=== PATIENT | female | born 2000 | race Caucasian/White ===

== ENCOUNTER 2021-10-06 22:11 | Emergency (ER) | payer OTHER ==
[~2021-10-06] VITALS: Ht 152.4 cm; Wt 72.6 kg
== END 2021-10-06 23:01 | disposition home or self-care (01) ==
LOC: ER 22:11
DX: S60.032A Contusion of left middle finger without damage to nail, initial encounter (principal); Y93.B9 Activity, other involving muscle strengthening exercises; Y92.89 Other specified places as the place of occurrence of the external cause

== ENCOUNTER → 2022-05-05 | Emergency (ER) | payer OTHER ==
[~2022-05-05] VITALS: Ht 170.2 cm; Wt 76.2 kg
[~2022-05-05] MED LIST: INTESTINEX680 M1 PO; LEVSIN0.125 MG PO; PEPCID AC20 MG PO
== END | disposition home or self-care (01) ==
LOC: ER 00:49
DX: K52.9 Noninfective gastroenteritis and colitis, unspecified (principal); K29.70 Gastritis, unspecified, without bleeding; Z88.6 Allergy status to analgesic agent; Z20.822 Contact with and (suspected) exposure to COVID-19